=== PATIENT | female | born 1970 | race Caucasian/White ===

== ENCOUNTER 2020-01-31 19:31 | Emergency (ER) | payer OTHER ==
[~2020-01-31] VITALS: Ht 167.6 cm; Wt 95.3 kg
[2020-01-31] MEDS ORDERED: METFORMIN HCL500 M3 PO (19:50)
[2020-01-31] MEDS ORDERED: HYDROCODON-ACE1 EAC7 PO (21:19)
[2020-01-31] MEDS ORDERED: IBUPROFEN 800800 MG PO (21:19)
[2020-01-31] MEDS ORDERED: AUGMENTIN 500-1 EACH PO (21:19)
[2020-01-31 21:55] VITALS: BP 198/101
== END 2020-01-31 21:55 | disposition home or self-care (01) ==
LOC: M.ERS 19:31
DX: S81.812A Laceration without foreign body, left lower leg, initial encounter (principal); I10 Essential (primary) hypertension; E11.9 Type 2 diabetes mellitus without complications; F17.210 Nicotine dependence, cigarettes, uncomplicated; W54.0XXA Bitten by dog, initial encounter; Y93.89 Activity, other specified; Y92.89 Other specified places as the place of occurrence of the external cause; Y99.8 Other external cause status